=== PATIENT | male | born 1980 | race Caucasian/White ===

== ENCOUNTER 2016-08-17 16:30 | Inpatient (IN) | payer BC, OTHER ==
[~2016-08-17] VITALS: Ht 180.3 cm; Wt 70.8 kg
[2016-08-17 17:20] VITALS: BP 161/101
[2016-08-17] MEDS ORDERED: CLONIDINE HCL 0.1 MG TABLET PO ONE (18:30)
[2016-08-17 18:38] LABS: *AMPHETAMINE, URINE NEGATIVE (NEGATIVE); *BARBITURATE, URINE NEGATIVE (NEGATIVE); *CANNABINOID, URINE NEGATIVE (NEGATIVE); *COCCAINE, URINE NEGATIVE (NEGATIVE); *OPIATE, URINE NEGATIVE (NEGATIVE); *PHENCYCLIDINE SCREEN,URINE NEGATIVE (NEGATIVE)
[2016-08-17] MEDS ORDERED: MAGNESIUM HYDROXIDE 30 ML LIQUID UDC PO PRN (19:00)
[2016-08-17] MEDS ORDERED: LORAZEPAM 1 MG TABLET PO ONE (19:00)
[2016-08-17] MEDS ORDERED: MIRALAX 17 GM POWD.PACK PO PRN (19:00)
[2016-08-17] MEDS ORDERED: IBUPROFEN 400 MG TABLET PO PRN (19:00)
[2016-08-17] MEDS ORDERED: diphenhydrAMINE 50 MG CAPSULE PO PRN (19:00)
[2016-08-17] MEDS ORDERED: HYDROXYZINE PAMOATE 25 MG CAPSULE PO PRN (19:00)
[2016-08-17] MEDS ORDERED: MAG HYDROX/AL HYDROX/SIMETH 30 ML LIQUID UDC PO PRN (19:00)
[2016-08-17] MEDS ORDERED: DICYCLOMINE HCL 20 MG TABLET PO PRN (19:00)
[2016-08-17] MEDS ORDERED: LOPERAMIDE HCL 2 MG CAPSULE PO PRN ×2 (19:00)
[2016-08-17] MEDS ORDERED: THIAMINE HCL 200 MG/2 ML VIAL IM ONE (19:00)
[2016-08-17] MEDS ORDERED: LORAZEPAM 1 MG TABLET PO PRN ×2 (19:00)
[2016-08-17] MEDS ORDERED: ONDANSETRON ODT 4 MG TAB.RAPDIS SL PRN (19:00)
[2016-08-17] MEDS ORDERED: ACETAMINOPHEN 325 MG TABLET PO PRN (19:00)
[2016-08-17] MEDS ORDERED: LORAZEPAM 2 MG/1 ML VIAL IM PRN (19:00)
[2016-08-17] MEDS ORDERED: ONDANSETRON 4 MG/2 ML VIAL IM PRN (19:00)
[2016-08-17 20:07] LABS: BASOPHILS # (AUTO) 0.1 K/uL (0.0-8.0); BASOPHILS % (AUTO) 2.5 % (0.0-2.0); EOSINOPHILS # (AUTO) 0.1 K/uL (0.0-0.7); EOSINOPHILS % (AUTO) 2.4 % (0.0-7.0); HEMATOCRIT 43.2 % (36.7-47.1); HEMOGLOBIN 14.9 g/dL (12.5-16.3); LYMPHOCYTES # (AUTO) 1.8 K/uL (40.0-85.0); MEAN CORPUSCULAR HEMOGLOBIN 34.8 uug (23.8-33.4); MEAN CORPUSCULAR HGB CONC 34 g/dL (32.5-36.3); MEAN CORPUSCULAR VOLUME 101.1 fL (73.0-96.2); MONOCYTES # (AUTO) 0.3 K/uL (2.0-10.0); MONOCYTES % (AUTO) 6.9 % (0.0-11.0); NEUTROPHILS # (AUTO) 2.6 K/uL (1.8-8.9); NEUTROPHILS % (AUTO) 50.2 % (38.5-71.5); PLATELET COUNT (AUTO) 168 K/uL (152-348); RED BLOOD CELL COUNT(AUTO) 4.27 MIL/uL (4.06-5.63); RED CELL DISTRIBUTION WIDTH 13.2 % (12.1-16.2); WHITE BLOOD COUNT (AUTO) 4.9 K/uL (3.6-10.2)
[2016-08-17 20:22] LABS: ALBUMIN 4.9 g/dL (3.4-5.0); BILIRUBIN,TOTAL 0.4 mg/dL (0.2-1.0); CALCIUM 9.3 mg/dL (8.5-10.1); CREATININE 0.8 mg/dL (0.6-1.3); MAGNESIUM 2.1 mg/dL (1.8-2.4); POTASSIUM 4.5 mmol/L (3.5-5.1); TOTAL PROTEIN, SERUM 8.8 g/dL (6.4-8.2)
[2016-08-17 20:30] LABS: THYROID STIMULATING HORMONE 0.746 mIU/mL (0.358-3.740)
[2016-08-17 20:40] VITALS: BP 122/78
[2016-08-17 20:47] LABS: HIV-1 p24 ANTIGEN NON REACTIVE (NONREACTIVE); HIV-1/2 ANTIBODY NON REACTIVE (NONREACTIVE)
[2016-08-17] MEDS ORDERED: LORAZEPAM 1 MG TABLET PO SCH (22:00)
[2016-08-18 00:30] VITALS: BP 129/75
[2016-08-18 04:15] VITALS: BP 114/74
[2016-08-18] MEDS ORDERED: LOPE2CAP40 PO (06:27)
[2016-08-18 08:00] VITALS: BP 123/76
[2016-08-18] MEDS ORDERED: TUBERCULIN,PURIF.PROT.DERIV. 5 TU/0.1 ML TEST ID ONE (09:00)
[2016-08-18] MEDS: LORAZEPAM 1 MG TABLET PO SCH ×3 (10:00→21:18)
[2016-08-18] MEDS: FOLIC ACID 1 MG TABLET PO SCH (10:01)
[2016-08-18] MEDS: THIAMINE HCL 100 MG TABLET PO SCH (10:01)
[2016-08-18] MEDS: MULTIVITAMINS,THERAPEUTIC TABLET PO SCH (10:01)
[2016-08-18 12:00] VITALS: BP 115/80
[2016-08-18 16:00] VITALS: BP 124/86
[2016-08-18 20:30] VITALS: BP 142/87
[2016-08-19 00:40] VITALS: BP 120/65
[2016-08-19 04:20] VITALS: BP 116/74
[2016-08-19 07:59] LABS: ALBUMIN 4.1 g/dL (3.4-5.0); BILIRUBIN,DIRECT 0.2 mg/dL (0.0-0.2); BILIRUBIN,TOTAL 0.8 mg/dL (0.2-1.0); CALCIUM 9.7 mg/dL (8.5-10.1); MAGNESIUM 1.9 mg/dL (1.8-2.4); PHOSPHOROUS 4.7 mg/dL (2.5-4.9); POTASSIUM 4.2 mmol/L (3.5-5.1); TOTAL PROTEIN, SERUM 7.8 g/dL (6.4-8.2)
[2016-08-19 08:00] VITALS: BP 137/97
[2016-08-19 08:00] LABS: FOLIC ACID 17.8 NG/ML (8.6-58.9)
[2016-08-19] MEDS ORDERED: LORAZEPAM 1 MG TABLET PO SCH (09:00)
[2016-08-19] MEDS: FOLIC ACID 1 MG TABLET PO SCH (09:34)
[2016-08-19] MEDS: MULTIVITAMINS,THERAPEUTIC TABLET PO SCH (09:34)
[2016-08-19] MEDS: THIAMINE HCL 100 MG TABLET PO SCH (09:34)
[2016-08-19 12:00] VITALS: BP 112/73
[2016-08-19] MEDS: LORAZEPAM 1 MG TABLET PO SCH ×2 (14:15→20:28)
[2016-08-19 16:00] VITALS: BP 123/80
[2016-08-19 20:25] VITALS: BP 147/95
[2016-08-20 00:20] VITALS: BP 124/86
[2016-08-20 04:16] VITALS: BP 115/73
[2016-08-20 08:00] VITALS: BP 121/69
[2016-08-20] MEDS ORDERED: LORAZEPAM 1 MG TABLET PO SCH ×3 (09:00→11:15)
[2016-08-20] MEDS: MULTIVITAMINS,THERAPEUTIC TABLET PO SCH (09:45)
[2016-08-20] MEDS: FOLIC ACID 1 MG TABLET PO SCH (09:45)
[2016-08-20] MEDS: THIAMINE HCL 100 MG TABLET PO SCH (09:46)
[2016-08-20 12:00] VITALS: BP 133/94
[2016-08-20 16:00] VITALS: BP 131/89
[2016-08-20 20:18] LABS: *AMPHETAMINE, URINE NEGATIVE (NEGATIVE); *BARBITURATE, URINE NEGATIVE (NEGATIVE); *CANNABINOID, URINE NEGATIVE (NEGATIVE); *COCCAINE, URINE NEGATIVE (NEGATIVE); *OPIATE, URINE NEGATIVE (NEGATIVE); *PHENCYCLIDINE SCREEN,URINE NEGATIVE (NEGATIVE)
[2016-08-20 20:24] VITALS: BP 117/84
[2016-08-21 00:29] VITALS: BP 129/89
[2016-08-21 04:06] LABS: HCV AB <0.1 s/co ratio (0.0-0.9); HEPATITIS B CORE AB, IgM Negative (Negative); HEPATITIS B SURFACE AG Negative (Negative)
[2016-08-21 04:44] VITALS: BP 129/84
[2016-08-21 08:00] VITALS: BP 109/86
[2016-08-21] MEDS: MULTIVITAMINS,THERAPEUTIC TABLET PO SCH (08:43)
[2016-08-21] MEDS: FOLIC ACID 1 MG TABLET PO SCH (08:44)
[2016-08-21] MEDS: THIAMINE HCL 100 MG TABLET PO SCH (08:44)
[2016-08-21] MEDS ORDERED: LORAZEPAM 1 MG TABLET PO SCH (09:00)
[2016-08-21] MEDS ORDERED: DIPH50CA37 PO (09:08)
[2016-08-21] MEDS ORDERED: HYDR-3895 PO (09:08)
[2016-08-21] MEDS ORDERED: MULT-24 PO (09:08)
== END 2016-08-21 10:12 | disposition other institution (70) | DRG 895 ==
LOC: SRC 16:30
PROVIDERS: ADMIT Internal Medicine; ATTEND Internal Medicine
PROC: HZ2ZZZZ Detoxification Services for Substance Abuse Treatment (ICD-10-PCS; principal; 2016-08-17)
PROC: HZ31ZZZ Individual Counseling for Substance Abuse Treatment, Behavioral (ICD-10-PCS; 2016-08-18)
DX: F10.230 Alcohol dependence with withdrawal, uncomplicated (principal); K70.10 Alcoholic hepatitis without ascites; Y90.9 Presence of alcohol in blood, level not specified; I15.9 Secondary hypertension, unspecified; F41.9 Anxiety disorder, unspecified; D75.89 Other specified diseases of blood and blood-forming organs; Z81.1 Family history of alcohol abuse and dependence; Z81.8 Family history of other mental and behavioral disorders
CPT/HCPCS: 36415; 71010; 80307; 82746; 83690; 83735; 84100; 84443; 85025; 86592; 86705; 86803; 87340; 87806; A4663; G6040-TC; J3411; Q0163